=== PATIENT | female | born 1990 | race Caucasian/White ===

== ENCOUNTER 2016-06-12 16:09 | Emergency (ER) | payer BC, OTHER ==
--- NOTE | 2016-06-12 17:00 | ERPHSYRPT ---
- History of Present Illness Time Seen by Provider: 06/12/16 16:50 Source: patient Exam Limitations: clinical condition Patient Subjective Stated Complaint: pt states she has had vaginal irritation. denies any discharge. states she has an odor. states vaginal area is itching and burning. denies any dysuria. Triage Nursing Assessment: pt pink, warm, dry. pt afebrile. Physician History: PATIENT COMPLAINS OF VAGINAL ITCHING, ODOR AND BURNING DISCOMFORT X 3 DAYS, DENIES FEVER, FLANK PAIN, URINARY SYMPTOMS. Timing/Duration: day(s) Activites at Onset: none Quality: other (ITCHING) Onset Location: vulvar pain Pain Radiation: none Severity of Pain-Max: moderate Severity of Pain-Current: moderate Prior abdominal problems: none Modifying Factors: Improves With: nothing Associated Symptoms: denies symptoms Allergies/Adverse Reactions: No Known Drug Allergies Allergy (Verified 06/12/16 16:39) Home Medications: Clomiphene Citrate 50 mg PO DAILY 06/12/16 [History] Dextroamphetamine/Amphetamine [Adderall 15 mg Tablet] 15 mg PO DAILY 06/12/16 [ History] Hx Tetanus, Diphtheria Vaccination/Date Given: Yes (up to date) Hx Influenza Vaccination/Date Given: No Hx Pneumococcal Vaccination/Date Given: No - Review of Systems Constitutional: No Fever, No Chills Eyes: No Symptoms Ears, Nose, & Throat: No Symptoms Respiratory: Stridor, No Cough, No Dyspnea Cardiac: Orthopnea, No Chest Pain, No Edema, No Syncope Abdominal/Gastrointestinal: No Abdominal Pain, No Nausea, No Vomiting, No Diarrhea Genitourinary Symptoms: Vaginal Itching Musculoskeletal: No Symptoms, No Back Pain, No Neck Pain Skin: No Rash Neurological: No Dizziness, No Focal Weakness, No Sensory Changes Psychological: No Symptoms Endocrine: No Symptoms All Other Systems: Reviewed and Negative - Past Medical History Pertinent Past Medical History: Yes Neurological History: No Pertinent History ENT History: No Pertinent History Cardiac History: No Pertinent History Respiratory History: No Pertinent History Endocrine Medical History: No Pertinent History Musculoskeletal History: No Pertinent History GI Medical History: No Pertinent History History: No Pertinent History Psycho-Social History: Depression Female Reproductive Disorders: No Pertinent History - Past Surgical History Past Surgical History: Yes Neuro Surgical History: No Pertinent History Cardiac: No Pertinent History Respiratory: No Pertinent History Gastrointestinal: Cholecystectomy Genitourinary: No Pertinent History Musculoskeletal: No Pertinent History Female Surgical History: Section - Social History Smoking Status: Current every day smoker How long have you smoked: 2 Exposure to second hand smoke: No Drug Use: none Patient Lives Alone: No - Female History Hx Last Menstrual Period: 06/10/16 Hx Now: No - Nursing Vital Signs Nursing Vital Signs: Initial Vital Signs Temperature 98.3 F Temperature Source Oral Pulse Rate 72 Respiratory Rate 18 Blood Pressure [Right Arm] 122/60 Pain Intensity 0 - Physical Exam General Appearance: no apparent distress, alert Eye Exam: PERRL/EOMI, eyes nml inspection Ears, Nose, Throat Exam: normal ENT inspection, TMs normal, pharynx normal, moist mucous membranes Neck Exam: normal inspection, non-tender, supple, full range of motion Respiratory Exam: normal breath sounds, lungs clear, No respiratory distress Cardiovascular Exam: regular rate/rhythm, normal heart sounds, normal peripheral pulses Gastrointestinal/Abdomen Exam: soft, No tenderness, No mass Pelvic Exam: normal external exam, other (CLEAR DISCHARGE, NO CERVICAL MOTION TENDERNESS, NO ADNEXAL TENDERNESS) Back Exam: normal inspection, normal range of motion, No CVA tenderness, No vertebral tenderness Extremity Exam: normal inspection, normal range of motion, pelvis stable Neurologic Exam: alert, oriented x 3, cooperative, tablet technician II-XII nml as tested, normal mood/affect, sensation nml, No motor deficits Skin Exam: normal color, warm, dry Lymphatic Exam: No adenopathy SpO2 Interpretation: normal Ordered Tests: Active Orders 24 hr Category Date Time Status HCG,QUALITATIVE URINE Stat Lab 06/12/16 17:00 Completed UA W/ MICROSCOPIC Stat Lab 06/12/16 17:00 Completed Wet Prep Stat Lab 06/12/16 17:00 Completed Lab/Rad Data: Laboratory Results 06/12/16 06/12/16 Range/Units 17:00 17:00 Ur Collection Type CCMS Urine Color YELLOW (YELLOW) Urine Appearance SLIGHTLY CLOUDY (CLEAR) Urine pH 5.0 (5-6) Ur Specific [place] >=1.030 (1.005-1.025) Urine Protein NEGATIVE (Negative) Urine Glucose (UA) NEGATIVE (NEGATIVE) mg/dL Urine Ketones NEGATIVE (NEGATIVE) Urine Nitrite NEGATIVE (NEGATIVE) Urine Bilirubin NEGATIVE (NEGATIVE) Urine Urobilinogen 0.2 (0-1) mg/dL Urine WBC (Auto) LARGE (NEGATIVE) Urine RBC (Auto) SMALL (0-5) Jose/ul Urine Microscopic RBC 0-2 (0-2) /HPF Urine Microscopic WBC >100 (0-5) /HPF Ur Epithelial Cells MODERATE (FEW) /HPF Urine Bacteria FEW (NEGATIVE) /HPF Urine HCG, Qual NEGATIVE (Negative) WBC (Wet Prep) Rare RBC (Wet Prep) None Seen Epi Cells (Wet Prep) None Seen Bacteria (Wet Prep) Rare Clue Cells (Wet Prep) None Seen Trichomonas (Wet Prep) None Seen Budding Yeast (Wet Prp) None Seen Specimen Received 06-12-16 1745 - Progress Counseled pt/family regarding: lab results, diagnosis, need for follow-up - Departure Time of Disposition: 18:25 Departure Disposition: Home Clinical Impression: URINARY TRACT INFECTION Condition: Stable Critical Care Time: No Additional Instructions: ANTIBIOTIC BACTRIM DS TWICE DAILY FOR 10 DAYS. DIFLUCAN 150MG X 1 DOSE. DRINK PLENTY OF FLUIDS. CONSULT YOUR FAMILY PHYSICIAN FOR FOLLOW IN 1 WEEK. Prescriptions: Fluconazole [Diflucan ] 150 mg PO DAILY #1 tablet Sulfamethoxazole/Trimethoprim [Bactrim Ds Tablet] 1 each PO BID #20 tablet
[2016-06-12 17:34] VITALS: O2SAT 98
[2016-06-12 18:11] LABS: Collection Type CCMS
[2016-06-12 18:12] LABS: Bacteria FEW /HPF (NEGATIVE); Bacteria Rare; COMPLETE URINE MICROSCOPIC? YES; Clue Cells None Seen; Epithelial Cells MODERATE /HPF (FEW); Trichomonas None Seen; WBC >100 /HPF (0-5)
[2016-06-12 18:13] LABS: Yeast None Seen
[2016-06-12 18:33] VITALS: BP 132/78; PULSE 76
[2016-06-12 19:29] LABS: CHLAMYDIA DNA NEGATIVE
== END 2016-06-12 18:33 | disposition home or self-care (01) ==
LOC: ED 16:09
DX: N39.0 Urinary tract infection, site not specified (principal); R10.2 Pelvic and perineal pain
CPT/HCPCS: 81000; 84703; 87210; 87490; 87590; 99283